=== PATIENT | male | born 1965 | race Caucasian/White ===

== ENCOUNTER 2017-05-03 11:27 | Emergency (ER) | payer OTHER ==
[~2017-05-03] VITALS: Ht 182.9 cm; Wt 87.7 kg
[~2017-05-03 11:27] MED LIST: NOHOMEMEDS
[2017-05-03] MEDS ORDERED: KEFLEX500 MG PO (13:37)
[2017-05-03] MEDS ORDERED: BACTRIM,SEPT1 TABLET PO (13:37)
[2017-05-03 14:26] VITALS: BP 146/92
== END 2017-05-03 14:29 | disposition home or self-care (01) ==
LOC: EME 11:27
DX: S71.141A Puncture wound with foreign body, right thigh, initial encounter (principal); W20.8XXA Other cause of strike by thrown, projected or falling object, initial encounter; Y99.0 Civilian activity done for income or pay; Z88.7 Allergy status to serum and vaccine
CPT/HCPCS: 73552; 99281; 99284